=== PATIENT | female | born 1985 | race Hispanic/Latino ===

== ENCOUNTER 2019-12-23 17:07 | Emergency (ER) | payer BC ==
[2019-12-23] MEDS ORDERED: DICYCLOMINE HCL 10 MG/ML 2ML AMP IM ONE (17:33)
[2019-12-23] MEDS ORDERED: ONDANSETRON ODT 4 MG TAB ONE (17:34)
[2019-12-23 18:25] LABS: APPEARANCE,URINE Clear (CLEAR); BILIRUBIN,URINE Negative (NEGATIVE); COLOR,URINE Yellow (YELLOW); GLUCOSE, URINE (UA) Negative (NEGATIVE); KETONES,URINE Negative (NEGATIVE); LEUKOCYTE ESTERASE ,URINE Negative (NEGATIVE); NITRATE,URINE Negative (NEGATIVE); OCCULT BLOOD,URINE Large (NEGATIVE); PROTEIN,URINE Negative (NEGATIVE); UROBILINOGEN,URINE 0.2 mg/dL (0.2-1.0)
[2019-12-23 18:28] LABS: HCG,QUAL RESULT NEGATIVE (NEGATIVE)
[2019-12-23 18:59] LABS: BACTERIA,URINE Few /HPF (None Seen); SQUAMOUS EPITHELIAL CELL,UR Few /HPF (0-2)
== END 2019-12-23 19:01 | disposition home or self-care (01) ==
LOC: EDH 17:07
DX: J11.1 Influenza due to unidentified influenza virus with other respiratory manifestations (principal); R19.7 Diarrhea, unspecified; Z90.49 Acquired absence of other specified parts of digestive tract
CPT/HCPCS: 81001; 81025; 87804 ×2; 96372; 99283; J0500

== ENCOUNTER 2020-02-28 20:32 | Inpatient (IN) | payer BC ==
[~2020-02-28] VITALS: Ht 162.6 cm; Wt 158.6 kg
[2020-02-28] MEDS ORDERED: ONDANSETRON HCL 4 MG/2 ML VIAL ONE (20:51)
[2020-02-28 20:58] LABS: BASOPHILS % (AUTO) 0.4 % (0.0-5.0); EOSINOPHILS % (AUTO) 0.6 % (0.0-8.0); HEMATOCRIT 42.2 % (36-48); LYMPHOCYTES % (AUTO) 14.7 % (21.0-51.0); MEAN CORPUSCULAR HEMOGLOBIN 25.7 pg (27.0-33.0); MEAN CORPUSCULAR HGB CONC 31.5 g/dL (32.0-36.0); MEAN CORPUSCULAR VOLUME 81.6 fL (79-99); MONOCYTES % (AUTO) 7.2 % (3.0-13.0); NEUTROPHILS % (AUTO) 76.3 % (40.0-77.0); PLATELET COUNT (AUTO) 377 K/uL (130-400); RED BLOOD CELL COUNT(AUTO) 5.17 MIL/uL (4.00-5.50); WHITE BLOOD COUNT (AUTO) 15.5 K/uL (4.8-10.8)
[2020-02-28 21:08] LABS: CREATININE 0.9 mg/dL (0.5-1.5); POTASSIUM 3.8 mmol/L (3.5-5.1)
[2020-02-28 21:13] LABS: ALBUMIN 3.4 g/dL (3.5-5.0); BILIRUBIN,TOTAL 1.1 mg/dL (0.2-1.0)
[2020-02-28 21:24] LABS: APPEARANCE,URINE Cloudy (CLEAR); BILIRUBIN,URINE Small (NEGATIVE); COLOR,URINE Dark Yellow (YELLOW); GLUCOSE, URINE (UA) TRACE mg/dL (NEGATIVE); KETONES,URINE Negative (NEGATIVE); LEUKOCYTE ESTERASE ,URINE Trace (NEGATIVE); NITRATE,URINE Negative (NEGATIVE); OCCULT BLOOD,URINE Negative (NEGATIVE); PROTEIN,URINE Negative (NEGATIVE)
[2020-02-28] MEDS ORDERED: MORPHINE SULFATE 4 MG/1ML SYG ONE ×3 (21:27→23:11)
[2020-02-28 21:29] LABS: HCG,QUAL RESULT NEGATIVE (NEGATIVE)
[2020-02-28 21:31] LABS: BACTERIA,URINE Few /HPF (None Seen); RBC,URINE 0-1 /HPF (0-1); SQUAMOUS EPITHELIAL CELL,UR Few /HPF (0-2)
[2020-02-28] MEDS ORDERED: IOHEXOL 350 MG/ML 100ML INFUS..BTL IV ONE (21:47)
[2020-02-28] MEDS ORDERED: INSULIN HUMULIN R 100 UNIT/ML 3ML ONE (21:48)
[2020-02-28] MEDS ORDERED: HYDRALAZINE HCL 20 MG/ML VIAL ONE (23:06)
[2020-02-28 23:28] LABS: TRIGLYCERIDES 149 mg/dL (30-200)
[2020-02-28] MEDS ORDERED: LACTULOSE 20 GM/30 ML UDCUP PO PRN (23:30)
[2020-02-29 00:04] LABS: HEMOGLOBIN A1C 8.6 % (4.0-6.0)
[2020-02-29 00:05] LABS: CHOLESTEROL 207 mg/dL (<200); HDL CHOLESTEROL 53 mg/dL (35-85); LDL DIRECT 136 mg/dL (0-99)
[2020-02-29] MEDS ORDERED: ZOSYN 3.375GM+NS 50ML 50 ML IV ONE (00:25)
[2020-02-29] MEDS: SODIUM CHLORIDE 0.9% 1000ML 1,000 ML IV SCH ×2 (02:13→05:18)
[2020-02-29 02:56] VITALS: BP 160/82
[2020-02-29] MEDS: MORPHINE SULFATE 4 MG/1ML SYG IV PRN ×4 (03:32→20:41)
[2020-02-29] MEDS: INSULIN HUMULIN R 100 UNIT/ML 3ML SQ SCH ×4 (06:31→21:08)
[2020-02-29 06:33] LABS: BASOPHILS % (AUTO) 0.2 % (0.0-5.0); EOSINOPHILS % (AUTO) 0.1 % (0.0-8.0); HEMATOCRIT 44.3 % (36-48); MEAN CORPUSCULAR HGB CONC 31.2 g/dL (32.0-36.0); MEAN CORPUSCULAR VOLUME 83.6 fL (79-99); NEUTROPHILS % (AUTO) 85.1 % (40.0-77.0); PLATELET COUNT (AUTO) 429 K/uL (130-400); RED CELL DISTRIBUTION WIDTH 13.3 % (11.0-15.5); WHITE BLOOD COUNT (AUTO) 18.1 K/uL (4.8-10.8)
[2020-02-29 07:33] LABS: POTASSIUM 4.6 mmol/L (3.5-5.1)
[2020-02-29 08:00] VITALS: BP 176/105
[2020-02-29] MEDS: ZOSYN 3.375GM+NS 50ML 50 ML IV SCH ×3 (08:24→15:18)
[2020-02-29] MEDS: FAMOTIDINE/PF 20 MG/2 ML VIAL IV SCH ×2 (08:24→20:35)
[2020-02-29] MEDS: ENOXAPARIN SODIUM 40 MG/0.4 ML SYRINGE SQ SCH (08:31)
[2020-02-29 09:39] LABS: ALBUMIN 3.2 g/dL (3.5-5.0); BILIRUBIN,DIRECT 0.7 mg/dL (0.0-0.3); BILIRUBIN,TOTAL 1.1 mg/dL (0.2-1.0); TOTAL PROTEIN, SERUM 7.7 g/dL (6.0-8.3)
--- NOTE | 2020-02-29 09:46 | NUR ---
NOTIFIED DR. CANTOR OF THE GGT RESULT OF 925. NO ORDERS WAS GIVEN.
[2020-02-29] MEDS: HYDRALAZINE HCL 20 MG/ML VIAL IV PRN ×2 (11:12→23:48)
[2020-02-29] MEDS ORDERED: INSULIN GLARGINE 100 UNITS/ML 10 ML VIAL SQ SCH (11:30)
[2020-02-29] MEDS: LACTATED RINGERS 1000ML 1,000 ML IV SCH ×2 (11:30→20:35)
[2020-02-29 11:46] VITALS: BP 165/81
[2020-02-29 11:54] VITALS: BP 171/68
[2020-02-29] MEDS ORDERED: GADODIAMIDE 10 MMOL/20 ML VIAL IV ONE (13:33)
[2020-02-29 16:00] VITALS: BP 152/94
[2020-02-29 17:11] LABS: AMPHET/METH SCREEN,URINE NEGATIVE (NEGATIVE); BARBITURATE SCREEN, URINE NEGATIVE (NEGATIVE); BENZODIAZEPINES SCREEN,URINE NEGATIVE (NEGATIVE); CANNABINOID SCREEN,URINE POSITIVE (NEGATIVE); COCAINE SCREEN,URINE NEGATIVE (NEGATIVE); OPIATE SCREEN,URINE NEGATIVE (NEGATIVE); PHENCYCLIDINE SCREEN,URINE NEGATIVE (NEGATIVE)
--- NOTE | 2020-02-29 18:06 | NUR ---
cm note pt resides at home with spouse, independent with adls and ambulation. no dme. dc plan is back to home at dc. no dc needs. Addendum: 02/29/20 at 1807 by JAK CALHOUN CM Amended: Links added.
[2020-02-29] MEDS ORDERED: LORAZEPAM 2 MG/ML 1 ML VIAL IVP PRN (18:30)
[2020-02-29] MEDS ORDERED: PHARMACY COMMUNICATION MISC PRN (18:30)
[2020-02-29] MEDS ORDERED: CHLORDIAZEPOXIDE HCL 25 MG CAP PO PRN (18:30)
[2020-02-29 19:51] VITALS: BP 156/83
[2020-03-01] VITALS (7 sets, daily range): BP systolic 120–168; BP diastolic 63–98
[2020-03-01] MEDS: MORPHINE SULFATE 4 MG/1ML SYG IV PRN ×4 (02:11→20:55)
[2020-03-01] MEDS: ACETAMINOPHEN 325 MG TAB PO PRN ×2 (04:28→16:05)
[2020-03-01] MEDS: LACTATED RINGERS 1000ML 1,000 ML IV SCH ×6 (05:55→20:36)
[2020-03-01] MEDS: INSULIN HUMULIN R 100 UNIT/ML 3ML SQ SCH ×4 (05:57→20:35)
[2020-03-01 06:09] LABS: BASOPHILS % (AUTO) 0.2 % (0.0-5.0); MEAN CORPUSCULAR HEMOGLOBIN 26.1 pg (27.0-33.0); MEAN CORPUSCULAR HGB CONC 31.6 g/dL (32.0-36.0); MEAN CORPUSCULAR VOLUME 82.8 fL (79-99); MONOCYTES % (AUTO) 7.1 % (3.0-13.0); NEUTROPHILS % (AUTO) 82.9 % (40.0-77.0); PLATELET COUNT (AUTO) 312 K/uL (130-400); RED BLOOD CELL COUNT(AUTO) 4.59 MIL/uL (4.00-5.50); RED CELL DISTRIBUTION WIDTH 13.7 % (11.0-15.5); WHITE BLOOD COUNT (AUTO) 21.1 K/uL (4.8-10.8)
[2020-03-01 06:29] LABS: ALBUMIN 2.6 g/dL (3.5-5.0); BILIRUBIN,DIRECT 0.2 mg/dL (0.0-0.3); BILIRUBIN,TOTAL 0.9 mg/dL (0.2-1.0); CREATININE 0.8 mg/dL (0.5-1.5); POTASSIUM 3.7 mmol/L (3.5-5.1); TOTAL PROTEIN, SERUM 6.7 g/dL (6.0-8.3)
--- NOTE | 2020-03-01 06:30 | NUR ---
paged Dr. Irma Rodriges about patient's lab results and her vital signs. patient's wbs is 21.1, patient's blood pressure is 120/63, with a heart rate of 114, glucose of 217, and temperature of 99.4. I suspect the patient is septic. pending call back from doctor.
[2020-03-01 09:23] LABS: CHOLESTEROL 132 mg/dL (<200); HDL CHOLESTEROL 97 mg/dL (35-85); LDL DIRECT 79 mg/dL (0-99); TRIGLYCERIDES 95 mg/dL (30-200)
[2020-03-01] MEDS: FAMOTIDINE/PF 20 MG/2 ML VIAL IV SCH ×2 (09:30→20:35)
[2020-03-01] MEDS: ENOXAPARIN SODIUM 40 MG/0.4 ML SYRINGE SQ SCH (09:31)
[2020-03-01] MEDS: FOLIC ACID 1 MG TABLET PO SCH (12:36)
[2020-03-01] MEDS: THIAMINE HCL 100 MG TABLET PO SCH (12:36)
[2020-03-01] MEDS: ZOSYN 3.375GM+NS 50ML 50 ML IV SCH ×2 (12:36→20:35)
--- NOTE | 2020-03-01 16:21 | NUR ---
NOTIFIED MD ON CURRENT VS 166/89, HR 102, RESP 24 ,O2 SAT AT 92 IN RA .. PER PATIENT DENIES SHORT OF BREATH , RECHECK ON O2 SAT WENT UP TO 94 PERCENT IN RA AFTER MORPHINE PRN DOSE FOR PAIN .. PER MD WILL CONT TO MONITOR CLOSELY . LET HIM KNOW PER FAMILY HAD QUESTION ON IF PATIENT NEEDED TO BE TESTED FOR COVID-19 .. AT THIS TIME PATIENT HAS SYMPTOMS RELATED TO PANCREATITIS AND SHAW CONT WITH CURRENT MANAGEMENT FOR PANCREATITIS WITH IV FLUIDS , PAIN MANAGEMENT AND ANTIBIOTICS .. WILL CONT TO MONITOR
[2020-03-01] MEDS: INSULIN GLARGINE 100 UNITS/ML 10 ML VIAL SQ SCH (20:34)
[2020-03-01] MEDS: MORPHINE SULFATE 2 MG/ML 1ML SYG IV PRN (23:17)
[2020-03-01] MEDS: HYDRALAZINE HCL 20 MG/ML VIAL IV PRN (23:17)
[2020-03-02] VITALS (7 sets, daily range): BP systolic 127–173; BP diastolic 84–96
[2020-03-02] MEDS: ZOSYN 3.375GM+NS 50ML 50 ML IV SCH (03:42)
[2020-03-02] MEDS: HYDRALAZINE HCL 20 MG/ML VIAL IV PRN (04:27)
[2020-03-02] MEDS: MORPHINE SULFATE 2 MG/ML 1ML SYG IV PRN (04:28)
[2020-03-02] MEDS: LACTATED RINGERS 1000ML 1,000 ML IV SCH ×5 (04:38→23:11)
[2020-03-02] MEDS: INSULIN HUMULIN R 100 UNIT/ML 3ML SQ SCH ×4 (05:47→20:41)
[2020-03-02 06:10] LABS: BASOPHILS % (AUTO) 0.3 % (0.0-5.0); EOSINOPHILS % (AUTO) 0.1 % (0.0-8.0); HEMATOCRIT 35.9 % (36-48); LYMPHOCYTES % (AUTO) 7.5 % (21.0-51.0); MEAN CORPUSCULAR HEMOGLOBIN 25.9 pg (27.0-33.0); MEAN CORPUSCULAR HGB CONC 31.2 g/dL (32.0-36.0); MEAN CORPUSCULAR VOLUME 82.9 fL (79-99); MONOCYTES % (AUTO) 7.6 % (3.0-13.0); NEUTROPHILS % (AUTO) 82.9 % (40.0-77.0); PLATELET COUNT (AUTO) 263 K/uL (130-400); RED BLOOD CELL COUNT(AUTO) 4.33 MIL/uL (4.00-5.50); RED CELL DISTRIBUTION WIDTH 13.5 % (11.0-15.5)
[2020-03-02 06:36] LABS: ALBUMIN 2.4 g/dL (3.5-5.0); BILIRUBIN,DIRECT 3.1 mg/dL (0.0-0.3); BILIRUBIN,TOTAL 3.8 mg/dL (0.2-1.0); CREATININE 0.7 mg/dL (0.5-1.5); MAGNESIUM 2.3 mg/dL (1.80-2.40); POTASSIUM 3.9 mmol/L (3.5-5.1); TOTAL PROTEIN, SERUM 6.6 g/dL (6.0-8.3)
[2020-03-02] MEDS: THIAMINE HCL 100 MG TABLET PO SCH (09:15)
[2020-03-02] MEDS: FOLIC ACID 1 MG TABLET PO SCH (09:16)
[2020-03-02] MEDS: FAMOTIDINE/PF 20 MG/2 ML VIAL IV SCH ×2 (09:16→19:23)
[2020-03-02] MEDS: ENOXAPARIN SODIUM 40 MG/0.4 ML SYRINGE SQ SCH (09:24)
[2020-03-02] MEDS: MORPHINE SULFATE 4 MG/1ML SYG IV PRN ×4 (09:37→22:05)
[2020-03-02] MEDS: MEROPENEM 1 GM VIAL IVP SCH ×2 (10:52→18:23)
[2020-03-02] MEDS: INSULIN GLARGINE 100 UNITS/ML 10 ML VIAL SQ SCH (20:42)
[2020-03-03] MEDS: MEROPENEM 1 GM VIAL IVP SCH ×3 (02:20→18:06)
[2020-03-03] MEDS: MORPHINE SULFATE 4 MG/1ML SYG IV PRN ×3 (02:20→10:58)
[2020-03-03] MEDS: LACTATED RINGERS 1000ML 1,000 ML IV SCH ×3 (02:21→14:50)
[2020-03-03 03:32] VITALS: BP 182/93
[2020-03-03] MEDS: HYDRALAZINE HCL 20 MG/ML VIAL IV PRN ×2 (05:35→20:29)
[2020-03-03] MEDS: INSULIN HUMULIN R 100 UNIT/ML 3ML SQ SCH ×4 (06:16→20:40)
[2020-03-03 07:25] VITALS: BP 169/86
[2020-03-03 08:13] LABS: HEPATITIS A ANTIBODY IGM Negative (Negative); HEPATITIS B CORE IGM Negative (Negative); HEPATITIS Bs ANTIGEN SCREEN P Negative (Negative)
[2020-03-03] MEDS: FAMOTIDINE/PF 20 MG/2 ML VIAL IV SCH ×2 (08:23→20:29)
[2020-03-03] MEDS: ENOXAPARIN SODIUM 40 MG/0.4 ML SYRINGE SQ SCH (08:23)
[2020-03-03] MEDS: THIAMINE HCL 100 MG TABLET PO SCH (08:23)
[2020-03-03] MEDS: FOLIC ACID 1 MG TABLET PO SCH (08:23)
[2020-03-03 10:50] LABS: HEMATOCRIT 34.9 % (36-48); MEAN CORPUSCULAR HEMOGLOBIN 25.8 pg (27.0-33.0); MEAN CORPUSCULAR HGB CONC 31.5 g/dL (32.0-36.0); MEAN CORPUSCULAR VOLUME 81.9 fL (79-99); PLATELET COUNT (AUTO) 294 K/uL (130-400); RED BLOOD CELL COUNT(AUTO) 4.26 MIL/uL (4.00-5.50); RED CELL DISTRIBUTION WIDTH 13.7 % (11.0-15.5)
[2020-03-03] MEDS: ONDANSETRON HCL 4 MG/2 ML VIAL IV PRN (10:57)
[2020-03-03 10:59] LABS: CREATININE 0.7 mg/dL (0.5-1.5); POTASSIUM 3.5 mmol/L (3.5-5.1)
[2020-03-03 11:04] LABS: ALBUMIN 2.2 g/dL (3.5-5.0); BILIRUBIN,TOTAL 0.9 mg/dL (0.2-1.0); TOTAL PROTEIN, SERUM 6.9 g/dL (6.0-8.3)
[2020-03-03 11:13] VITALS: BP 159/88
[2020-03-03] MEDS ORDERED: MORPHINE SULFATE 4 MG/1ML SYG IV PRN (11:45)
[2020-03-03 15:35] VITALS: BP 155/92
--- NOTE | 2020-03-03 16:20 | NUR ---
THC positive & Hx of ETOH abuse SW spoke with patient about lab results positive for marijuana. Patient admits that she smokes marijuana occasionally and just started to do it recently. Patient states she does not feel she has a problem with marijuana. SW also spoke to patient about hx of alcohol abuse. Patient did admit to drinking at least 3 beers a day and drinks a bottle of wine in one sitting. Patient states she started drinking more about 4 years ago but states she will stop due to pain that she experiences when she drinks. SW spoke with patient regarding negative effects of alcohol and marijuana on physical and mental health. Patient in agreement. SW provided patient with community resources for substance abuse counseling.
[2020-03-03] MEDS: MORPHINE SULFATE 2 MG/ML 1ML SYG IV PRN ×2 (16:49→23:08)
[2020-03-03 19:00] VITALS: BP 177/98
[2020-03-03] MEDS: ACETAMINOPHEN 325 MG TAB PO PRN (20:30)
[2020-03-03] MEDS: INSULIN GLARGINE 100 UNITS/ML 10 ML VIAL SQ SCH (20:40)
[2020-03-03 23:00] VITALS: BP 159/81
[2020-03-04] MEDS: MEROPENEM 1 GM VIAL IVP SCH ×3 (02:38→18:13)
[2020-03-04] MEDS: ACETAMINOPHEN 325 MG TAB PO PRN (02:38)
[2020-03-04 03:00] VITALS: BP_SYST 159; BP_SYST 173; BP_DIAS 81; BP_DIAS 97
[2020-03-04] MEDS: HYDRALAZINE HCL 20 MG/ML VIAL IV PRN ×2 (04:49→12:24)
[2020-03-04] MEDS: MORPHINE SULFATE 2 MG/ML 1ML SYG IV PRN (04:49)
[2020-03-04 04:54] LABS: BASOPHILS % (AUTO) 0.4 % (0.0-5.0); EOSINOPHILS % (AUTO) 0.5 % (0.0-8.0); HEMATOCRIT 32.8 % (36-48); LYMPHOCYTES % (AUTO) 7.6 % (21.0-51.0); MEAN CORPUSCULAR HEMOGLOBIN 25.8 pg (27.0-33.0); MEAN CORPUSCULAR HGB CONC 31.4 g/dL (32.0-36.0); MEAN CORPUSCULAR VOLUME 82.2 fL (79-99); MONOCYTES % (AUTO) 8.4 % (3.0-13.0); NEUTROPHILS % (AUTO) 80.4 % (40.0-77.0); PLATELET COUNT (AUTO) 316 K/uL (130-400); RED BLOOD CELL COUNT(AUTO) 3.99 MIL/uL (4.00-5.50); RED CELL DISTRIBUTION WIDTH 13.5 % (11.0-15.5); WHITE BLOOD COUNT (AUTO) 24.4 K/uL (4.8-10.8)
[2020-03-04 05:07] LABS: CREATININE 0.6 mg/dL (0.5-1.5); POTASSIUM 3.3 mmol/L (3.5-5.1)
--- NOTE | 2020-03-04 06:08 | NUR ---
CONTROL ENGINEER PAGED FOR ELEVATED BP AND SODIUM OF 129
[2020-03-04] MEDS: INSULIN HUMULIN R 100 UNIT/ML 3ML SQ SCH ×4 (06:43→20:03)
[2020-03-04] MEDS ORDERED: HYDROMORPHONE HCL 0.5 MG/0.5 ML ML ONE (06:59)
[2020-03-04] MEDS ORDERED: HYDROCHLOROTHIAZIDE 25 MG TABLET ONE (07:00)
[2020-03-04] MEDS: HYDROCHLOROTHIAZIDE 25 MG TABLET PO SCH ×2 (07:00→08:22)
[2020-03-04] MEDS ORDERED: LISINOPRIL 10 MG TABLET ONE (07:00)
[2020-03-04] MEDS: LISINOPRIL 10 MG TABLET PO SCH ×2 (07:00→08:22)
[2020-03-04 08:00] VITALS: BP 190/89
[2020-03-04] MEDS: HYDROMORPHONE HCL 0.5 MG/0.5 ML ML IVP PRN ×3 (08:36→23:05)
[2020-03-04] MEDS: FOLIC ACID 1 MG TABLET PO SCH (08:52)
[2020-03-04] MEDS: THIAMINE HCL 100 MG TABLET PO SCH (08:53)
[2020-03-04] MEDS: ENOXAPARIN SODIUM 40 MG/0.4 ML SYRINGE SQ SCH (08:55)
[2020-03-04 09:00] VITALS: BP 170/88
[2020-03-04] MEDS: FAMOTIDINE/PF 20 MG/2 ML VIAL IV SCH ×2 (09:47→19:58)
[2020-03-04 11:59] VITALS: BP 160/78
[2020-03-04] MEDS ORDERED: LIDOCAINE HCL-MPF 1% 2ML VIAL IV PRN (12:15)
[2020-03-04] MEDS ORDERED: POTASSIUM CHLORIDE 20MEQ/100ML 100 ML IV PRN (12:15)
[2020-03-04] MEDS: HYDROMORPHONE HCL 2 MG/ML VIAL IVP PRN ×2 (12:24→17:23)
[2020-03-04] MEDS: POTASSIUM CHLORIDE 20 MEQ ERTAB PO PRN ×3 (12:45→18:14)
[2020-03-04 17:04] VITALS: BP 153/86
[2020-03-04 19:00] VITALS: BP 147/69
[2020-03-04] MEDS: INSULIN GLARGINE 100 UNITS/ML 10 ML VIAL SQ SCH (20:00)
[2020-03-05] VITALS: BP 149/66
[2020-03-05] MEDS: MEROPENEM 1 GM VIAL IVP SCH ×3 (02:04→17:33)
[2020-03-05] MEDS: HYDROMORPHONE HCL 0.5 MG/0.5 ML ML IVP PRN ×2 (02:18→06:05)
[2020-03-05 04:00] VITALS: BP 152/75
[2020-03-05 04:36] LABS: BASOPHILS % (AUTO) 0.4 % (0.0-5.0); EOSINOPHILS % (AUTO) 0.7 % (0.0-8.0); HEMATOCRIT 32.2 % (36-48); LYMPHOCYTES % (AUTO) 7.6 % (21.0-51.0); MEAN CORPUSCULAR HEMOGLOBIN 26.4 pg (27.0-33.0); MEAN CORPUSCULAR HGB CONC 31.7 g/dL (32.0-36.0); MEAN CORPUSCULAR VOLUME 83.2 fL (79-99); MONOCYTES % (AUTO) 8.1 % (3.0-13.0); NEUTROPHILS % (AUTO) 79.7 % (40.0-77.0); PLATELET COUNT (AUTO) 325 K/uL (130-400); RED BLOOD CELL COUNT(AUTO) 3.87 MIL/uL (4.00-5.50); RED CELL DISTRIBUTION WIDTH 13.5 % (11.0-15.5); WHITE BLOOD COUNT (AUTO) 26.5 K/uL (4.8-10.8)
[2020-03-05 04:47] LABS: ALBUMIN 1.9 g/dL (3.5-5.0); BILIRUBIN,TOTAL 0.4 mg/dL (0.2-1.0); CREATININE 0.6 mg/dL (0.5-1.5); POTASSIUM 3.5 mmol/L (3.5-5.1); TOTAL PROTEIN, SERUM 6.3 g/dL (6.0-8.3)
[2020-03-05] MEDS: POTASSIUM CHLORIDE 10% ELIXIR 20 MEQ/15 ML UDCUP PO PRN ×2 (05:31→11:16)
[2020-03-05] MEDS: INSULIN HUMULIN R 100 UNIT/ML 3ML SQ SCH ×4 (06:05→20:00)
[2020-03-05 07:49] VITALS: BP 119/69
[2020-03-05] MEDS: FOLIC ACID 1 MG TABLET PO SCH (10:49)
[2020-03-05] MEDS: THIAMINE HCL 100 MG TABLET PO SCH (10:49)
[2020-03-05] MEDS: HYDROCHLOROTHIAZIDE 25 MG TABLET PO SCH (10:49)
[2020-03-05] MEDS: LISINOPRIL 10 MG TABLET PO SCH (10:49)
[2020-03-05] MEDS: ENOXAPARIN SODIUM 40 MG/0.4 ML SYRINGE SQ SCH (10:50)
[2020-03-05] MEDS: FAMOTIDINE/PF 20 MG/2 ML VIAL IV SCH ×2 (10:50→19:21)
[2020-03-05] MEDS: HYDROMORPHONE HCL 2 MG/ML VIAL IVP PRN ×2 (10:52→17:30)
[2020-03-05 11:22] VITALS: BP 139/64
--- NOTE | 2020-03-05 14:07 | NUR ---
RD NOTIFICATION Pt Newly Diagnosed DM. Pt not tolerating full/creamy liquids. Recommend Ensure Clear + Chicken broth with meals. Pt able to tolerate tea, water, clear broth. RD to continue to monitor diet advancement. RD also provided Diabetes Nutrition Education. Pt verbalized understanding. RD to continue to monitor. Addendum: 03/05/20 at [address] RD Amended: Links added.
--- NOTE | 2020-03-05 14:10 | NUR ---
NUTRITION EDUCATION DRISS provided Diabetes Nutrition education. Pt reports family members with diabetes. RD provided reference materials and handouts. RD also discussed pancreatitis nutrition recommendations with Pt. Pt verbalized understanding. DRISS encouraged Pt to notify as additional questions or concerns arise. Addendum: 03/05/20 at [address] RD Amended: Links added.
[2020-03-05 16:00] VITALS: BP 128/63
[2020-03-05 19:00] VITALS: BP 155/57
[2020-03-05] MEDS: INSULIN GLARGINE 100 UNITS/ML 10 ML VIAL SQ SCH (19:20)
[2020-03-06] VITALS (7 sets, daily range): BP systolic 119–147; BP diastolic 65–75
[2020-03-06] MEDS: HYDROMORPHONE HCL 0.5 MG/0.5 ML ML IVP PRN ×3 (00:52→15:12)
[2020-03-06] MEDS: MEROPENEM 1 GM VIAL IVP SCH ×3 (02:14→17:37)
[2020-03-06] MEDS: INSULIN HUMULIN R 100 UNIT/ML 3ML SQ SCH ×4 (05:39→20:29)
[2020-03-06] MEDS: FAMOTIDINE/PF 20 MG/2 ML VIAL IV SCH ×2 (09:01→20:22)
[2020-03-06] MEDS: HYDROCHLOROTHIAZIDE 25 MG TABLET PO SCH (09:01)
[2020-03-06] MEDS: LISINOPRIL 10 MG TABLET PO SCH (09:01)
[2020-03-06] MEDS: THIAMINE HCL 100 MG TABLET PO SCH (09:01)
[2020-03-06] MEDS: FOLIC ACID 1 MG TABLET PO SCH (09:01)
[2020-03-06] MEDS: ENOXAPARIN SODIUM 40 MG/0.4 ML SYRINGE SQ SCH (09:02)
[2020-03-06] MEDS: POTASSIUM CHLORIDE 20 MEQ ERTAB PO PRN (09:03)
--- NOTE | 2020-03-06 11:06 | NUR ---
RD UPDATE DIET ORDER DOWNGRADED TO CLEAR LIQUIDS. 30ML PROMOD TID ADD FOR NUTRITIONAL SUPPORT. RD TO CONTINUE TO MONITOR.
[2020-03-06] MEDS: ONDANSETRON HCL 4 MG/2 ML VIAL IV PRN (15:12)
[2020-03-06] MEDS: INSULIN GLARGINE 100 UNITS/ML 10 ML VIAL SQ SCH (20:28)
[2020-03-07] MEDS: POTASSIUM CHLORIDE 20 MEQ ERTAB PO PRN (00:32)
[2020-03-07] MEDS: MEROPENEM 1 GM VIAL IVP SCH ×3 (01:46→18:17)
[2020-03-07] MEDS: HYDROMORPHONE HCL 0.5 MG/0.5 ML ML IVP PRN ×3 (03:27→18:17)
[2020-03-07 03:50] VITALS: BP 118/71
[2020-03-07 04:51] LABS: BASOPHILS % (AUTO) 0.5 % (0.0-5.0); EOSINOPHILS % (AUTO) 1.5 % (0.0-8.0); HEMATOCRIT 31.4 % (36-48); LYMPHOCYTES % (AUTO) 9.4 % (21.0-51.0); MEAN CORPUSCULAR HEMOGLOBIN 26.1 pg (27.0-33.0); MEAN CORPUSCULAR HGB CONC 31.2 g/dL (32.0-36.0); MEAN CORPUSCULAR VOLUME 83.5 fL (79-99); NEUTROPHILS % (AUTO) 73.3 % (40.0-77.0); PLATELET COUNT (AUTO) 364 K/uL (130-400); RED BLOOD CELL COUNT(AUTO) 3.76 MIL/uL (4.00-5.50); RED CELL DISTRIBUTION WIDTH 13.3 % (11.0-15.5)
[2020-03-07 05:34] LABS: ALBUMIN 1.9 g/dL (3.5-5.0); BILIRUBIN,TOTAL 0.4 mg/dL (0.2-1.0); CREATININE 0.7 mg/dL (0.5-1.5); TOTAL PROTEIN, SERUM 6.5 g/dL (6.0-8.3)
[2020-03-07] MEDS: INSULIN HUMULIN R 100 UNIT/ML 3ML SQ SCH ×4 (06:05→22:21)
--- NOTE | 2020-03-07 06:52 | NUR ---
PATIENT UPDATE Up ad jose, tolerating clear liquids well, no nausea and vomiting. Medicated once for pain with dilaudid 0.5 mg given slow iv push for pain which afforded relief. Tmax at 100 degrees at the beginning of the shift.
[2020-03-07 08:00] VITALS: BP 120/68
[2020-03-07] MEDS: ONDANSETRON HCL 4 MG/2 ML VIAL IV PRN (08:24)
[2020-03-07] MEDS: FOLIC ACID 1 MG TABLET PO SCH (08:24)
[2020-03-07] MEDS: THIAMINE HCL 100 MG TABLET PO SCH (08:24)
[2020-03-07] MEDS: FAMOTIDINE/PF 20 MG/2 ML VIAL IV SCH ×2 (08:24→22:19)
[2020-03-07] MEDS: HYDROCHLOROTHIAZIDE 25 MG TABLET PO SCH (08:24)
[2020-03-07] MEDS: ENOXAPARIN SODIUM 40 MG/0.4 ML SYRINGE SQ SCH (08:25)
[2020-03-07] MEDS: LISINOPRIL 10 MG TABLET PO SCH (08:25)
[2020-03-07 11:11] VITALS: BP 142/75
[2020-03-07 16:00] VITALS: BP 136/74
[2020-03-07 19:06] VITALS: BP 126/67
[2020-03-07] MEDS: INSULIN GLARGINE 100 UNITS/ML 10 ML VIAL SQ SCH (22:23)
[2020-03-07 23:06] VITALS: BP 153/82
[2020-03-08] MEDS: MEROPENEM 1 GM VIAL IVP SCH ×3 (02:50→18:05)
[2020-03-08 03:11] VITALS: BP 150/78
[2020-03-08] MEDS: HYDROMORPHONE HCL 0.5 MG/0.5 ML ML IVP PRN (03:24)
[2020-03-08] MEDS: ACETAMINOPHEN 325 MG TAB PO PRN ×2 (03:35→23:41)
[2020-03-08 05:31] LABS: BASOPHILS % (AUTO) 0.6 % (0.0-5.0); HEMATOCRIT 31.7 % (36-48); LYMPHOCYTES % (AUTO) 10.9 % (21.0-51.0); MEAN CORPUSCULAR HEMOGLOBIN 25.9 pg (27.0-33.0); MEAN CORPUSCULAR HGB CONC 31.2 g/dL (32.0-36.0); MONOCYTES % (AUTO) 8.2 % (3.0-13.0); NEUTROPHILS % (AUTO) 69.4 % (40.0-77.0); PLATELET COUNT (AUTO) 400 K/uL (130-400); RED BLOOD CELL COUNT(AUTO) 3.82 MIL/uL (4.00-5.50); RED CELL DISTRIBUTION WIDTH 13.2 % (11.0-15.5); WHITE BLOOD COUNT (AUTO) 21.3 K/uL (4.8-10.8)
[2020-03-08 05:56] LABS: ALBUMIN 2.1 g/dL (3.5-5.0); BILIRUBIN,TOTAL 0.3 mg/dL (0.2-1.0); CREATININE 0.7 mg/dL (0.5-1.5); POTASSIUM 4.3 mmol/L (3.5-5.1); TOTAL PROTEIN, SERUM 6.7 g/dL (6.0-8.3)
[2020-03-08] MEDS: INSULIN HUMULIN R 100 UNIT/ML 3ML SQ SCH ×4 (05:58→21:14)
[2020-03-08 08:05] VITALS: BP 151/78
[2020-03-08] MEDS: ENOXAPARIN SODIUM 40 MG/0.4 ML SYRINGE SQ SCH (09:40)
[2020-03-08] MEDS: LISINOPRIL 10 MG TABLET PO SCH (09:40)
[2020-03-08] MEDS: FOLIC ACID 1 MG TABLET PO SCH (09:40)
[2020-03-08] MEDS: THIAMINE HCL 100 MG TABLET PO SCH (09:40)
[2020-03-08] MEDS: HYDROCHLOROTHIAZIDE 25 MG TABLET PO SCH (09:40)
[2020-03-08] MEDS: FAMOTIDINE/PF 20 MG/2 ML VIAL IV SCH ×2 (09:40→21:20)
[2020-03-08 11:48] VITALS: BP 143/71
[2020-03-08 16:51] VITALS: BP 117/62
[2020-03-08 19:15] VITALS: BP 126/68
[2020-03-08] MEDS: INSULIN GLARGINE 100 UNITS/ML 10 ML VIAL SQ SCH (21:14)
[2020-03-08 23:19] VITALS: BP 143/74
[2020-03-09] MEDS: MEROPENEM 1 GM VIAL IVP SCH ×2 (03:03→11:33)
[2020-03-09 03:41] VITALS: BP 136/71
[2020-03-09 05:22] LABS: BASOPHILS % (AUTO) 0.9 % (0.0-5.0); EOSINOPHILS % (AUTO) 3.8 % (0.0-8.0); HEMATOCRIT 32.9 % (36-48); LYMPHOCYTES % (AUTO) 14.1 % (21.0-51.0); MEAN CORPUSCULAR HEMOGLOBIN 25.6 pg (27.0-33.0); MEAN CORPUSCULAR VOLUME 82.5 fL (79-99); MONOCYTES % (AUTO) 8.1 % (3.0-13.0); NEUTROPHILS % (AUTO) 64.8 % (40.0-77.0); PLATELET COUNT (AUTO) 430 K/uL (130-400); RED BLOOD CELL COUNT(AUTO) 3.99 MIL/uL (4.00-5.50); RED CELL DISTRIBUTION WIDTH 13.1 % (11.0-15.5)
[2020-03-09 05:35] LABS: ALBUMIN 2.2 g/dL (3.5-5.0); BILIRUBIN,TOTAL 0.2 mg/dL (0.2-1.0); CREATININE 0.7 mg/dL (0.5-1.5); POTASSIUM 4.2 mmol/L (3.5-5.1); TOTAL PROTEIN, SERUM 7.1 g/dL (6.0-8.3)
[2020-03-09] MEDS: INSULIN HUMULIN R 100 UNIT/ML 3ML SQ SCH ×3 (05:56→16:30)
[2020-03-09] MEDS: FAMOTIDINE/PF 20 MG/2 ML VIAL IV SCH (08:17)
[2020-03-09] MEDS: METFORMIN HCL 500 MG TABLET PO SCH ×2 (08:18→17:16)
[2020-03-09] MEDS: HYDROCHLOROTHIAZIDE 25 MG TABLET PO SCH (08:18)
[2020-03-09] MEDS: LISINOPRIL 10 MG TABLET PO SCH (08:18)
[2020-03-09] MEDS: FOLIC ACID 1 MG TABLET PO SCH (08:19)
[2020-03-09] MEDS: THIAMINE HCL 100 MG TABLET PO SCH (08:19)
[2020-03-09] MEDS: ENOXAPARIN SODIUM 40 MG/0.4 ML SYRINGE SQ SCH (08:19)
[2020-03-09 08:25] VITALS: BP 138/73
[2020-03-09 13:38] VITALS: BP 144/68
[2020-03-09] MEDS ORDERED: METF-444 PO (14:00)
[2020-03-09] MEDS ORDERED: LISI10TA7 PO (14:00)
[2020-03-09] MEDS ORDERED: AMOX-429 PO (14:00)
[2020-03-09] MEDS ORDERED: HYDR12.54 PO (14:00)
[2020-03-09 17:24] VITALS: BP 138/70
--- NOTE | 2020-03-09 18:00 | NUR ---
DISCHARGE SUMMARY REVIEW WITH PT REGARDING , MEDICATIONS , SIDE EFFECT AND FOLLOWUP WITH CARE .WITH PRIVATE DR. INDICATED . DENIES ANY ABD PAIN OR C/O OF NAUSEA SL TO HER RAC WAS DC ,WITH NO REDNESS TO SITE, SM ENRICO APPLICATION ON .
== END 2020-03-09 18:00 | disposition home or self-care (01) | DRG 439 ==
LOC: EDH 20:32 → EDHIP 23:29 → 3CH 02-29 01:47
PROVIDERS: ADMIT Hospitalist; ATTEND Hospitalist
DX: K85.20 Alcohol induced acute pancreatitis without necrosis or infection (principal); Z68.44 Body mass index [BMI] 60.0-69.9, adult; K86.3 Pseudocyst of pancreas; R65.10 Systemic inflammatory response syndrome (SIRS) of non-infectious origin without acute organ dysfunction; K86.1 Other chronic pancreatitis; E66.01 Morbid (severe) obesity due to excess calories; K76.0 Fatty (change of) liver, not elsewhere classified; K59.00 Constipation, unspecified; R16.0 Hepatomegaly, not elsewhere classified; F10.20 Alcohol dependence, uncomplicated; E11.65 Type 2 diabetes mellitus with hyperglycemia; I10 Essential (primary) hypertension; F12.10 Cannabis abuse, uncomplicated; G20 Parkinson's disease; N28.9 Disorder of kidney and ureter, unspecified; Z82.49 Family history of ischemic heart disease and other diseases of the circulatory system; Z82.5 Family history of asthma and other chronic lower respiratory diseases; Z83.3 Family history of diabetes mellitus; Z90.49 Acquired absence of other specified parts of digestive tract
CPT/HCPCS: 36415; 71045; 74176; 74177; 74183; 80048; 80053; 80061; 80074; 80076; 80305; 81001; 81025; 82150; 82390; 82728; 82948; 82977; 83036; 83516; 83605; 83690; 83735; 85025; 85027; 86038; 86255; 87040; 87088; 93005; 99291; A9579; G0378; G0480; J0360; J1170; J1650; J1815; J2185; J2270; J2405; J2543; J3490; J7120; Q9967

== ENCOUNTER 2020-11-07 17:36 | Emergency (ER) | payer BC ==
[~2020-11-07 17:36] MED LIST: AMOX-429 PO; HYDR12.54 PO; LISI10TA7 PO; METF-444 PO
[2020-11-07 18:01] LABS: APPEARANCE,URINE Clear (CLEAR); BILIRUBIN,URINE Negative (NEGATIVE); COLOR,URINE Yellow (YELLOW); GLUCOSE, URINE (UA) Negative (NEGATIVE); KETONES,URINE Negative (NEGATIVE); LEUKOCYTE ESTERASE ,URINE Small (NEGATIVE); NITRATE,URINE Negative (NEGATIVE); OCCULT BLOOD,URINE Moderate (NEGATIVE); PROTEIN,URINE POS 1+ mg/dL (NEGATIVE)
[2020-11-07] MEDS ORDERED: LIDOCAINE HCL-MPF 1% 2ML VIAL ONE (18:02)
[2020-11-07] MEDS ORDERED: CEFTRIAXONE SODIUM 1 GM ONE (18:02)
[2020-11-07] MEDS ORDERED: PHENAZOPYRIDINE HCL 200 MG TABLET ONE (18:03)
[2020-11-07 18:07] LABS: HCG,QUAL RESULT NEGATIVE (NEGATIVE)
[2020-11-07 18:20] LABS: BACTERIA,URINE Few /HPF (None Seen); SQUAMOUS EPITHELIAL CELL,UR Few /HPF (0-2)
[2020-11-07 18:21] LABS: MUCUS,URINE Few LPF (None Seen)
== END 2020-11-07 18:46 | disposition home or self-care (01) ==
LOC: EDH 17:36
DX: R35.0 Frequency of micturition (principal); R30.0 Dysuria; E11.9 Type 2 diabetes mellitus without complications; Z90.49 Acquired absence of other specified parts of digestive tract
CPT/HCPCS: 81001; 81025; 96372; 99283; J0696; J3490

== ENCOUNTER 2020-12-29 05:04 | Emergency (ER) | payer BC, MEDICAID ==
[~2020-12-29 05:04] MED LIST changes: +LISI10TA24 PO; -LISI10TA7 PO
[2020-12-29] MEDS ORDERED: LIDOCAINE HCL 2% VISCOUS 15 ML UDCUP ONE (05:31)
[2020-12-29] MEDS ORDERED: ACETAMINOPHEN 500 MG TABLET ONE (05:32)
== END 2020-12-29 06:27 | disposition home or self-care (01) ==
LOC: EDH 05:04
DX: S01.512A Laceration without foreign body of oral cavity, initial encounter (principal); K02.9 Dental caries, unspecified; Z32.01 Encounter for pregnancy test, result positive; R03.0 Elevated blood-pressure reading, without diagnosis of hypertension; E11.9 Type 2 diabetes mellitus without complications; X58.XXXA Exposure to other specified factors, initial encounter; Y93.89 Activity, other specified; Y92.89 Other specified places as the place of occurrence of the external cause; Y99.8 Other external cause status
CPT/HCPCS: 81025

== ENCOUNTER 2021-01-08 01:52 | Emergency (ER) | payer BC, MEDICAID ==
[2021-01-08] MEDS ORDERED: SODIUM CHLORIDE 0.9% 1000ML 1,000 ML IV ONE (02:26)
[2021-01-08 02:31] LABS: BASOPHILS % (AUTO) 0.5 % (0.0-5.0); HEMATOCRIT 39.3 % (36-48); LYMPHOCYTES % (AUTO) 21.8 % (21.0-51.0); MEAN CORPUSCULAR HEMOGLOBIN 27.1 pg (27.0-33.0); MEAN CORPUSCULAR HGB CONC 32.3 g/dL (32.0-36.0); MONOCYTES % (AUTO) 5.7 % (3.0-13.0); NEUTROPHILS % (AUTO) 69.4 % (40.0-77.0); PLATELET COUNT (AUTO) 241 K/uL (130-400); RED BLOOD CELL COUNT(AUTO) 4.68 MIL/uL (4.00-5.50); WHITE BLOOD COUNT (AUTO) 12.9 K/uL (4.8-10.8)
[2021-01-08 02:40] LABS: APPEARANCE,URINE Clear (CLEAR); BILIRUBIN,URINE Negative (NEGATIVE); COLOR,URINE Orange (YELLOW); GLUCOSE, URINE (UA) Negative (NEGATIVE); KETONES,URINE Negative (NEGATIVE); LEUKOCYTE ESTERASE ,URINE Large (NEGATIVE); NITRATE,URINE Negative (NEGATIVE); OCCULT BLOOD,URINE Large (NEGATIVE); PROTEIN,URINE Trace mg/dL (NEGATIVE); UROBILINOGEN,URINE 0.2 mg/dL (0.2-1.0)
[2021-01-08 02:45] LABS: PROTHROMBIN TIME 10.9 SEC (9.6-11.6)
[2021-01-08 02:46] LABS: PARTIAL THROMBOPLASTIN TIME 23.4 SEC (26.3-35.5)
[2021-01-08 02:50] LABS: CREATININE 0.6 mg/dL (0.5-1.5); POTASSIUM 4.3 mmol/L (3.5-5.1)
[2021-01-08 03:13] LABS: ALBUMIN 3.4 g/dL (3.5-5.0); BILIRUBIN,TOTAL 0.2 mg/dL (0.2-1.0); TOTAL PROTEIN, SERUM 7.8 g/dL (6.0-8.3)
[2021-01-08 03:20] LABS: BACTERIA,URINE Few /HPF (None Seen); MUCUS,URINE Rare LPF (None Seen)
[2021-01-08] MEDS ORDERED: CEPHALEXIN 500 MG CAPSULE ONE (03:41)
== END 2021-01-08 03:51 | disposition home or self-care (01) ==
LOC: EDH 01:52
DX: O20.0 Threatened abortion (principal); O23.40 Unspecified infection of urinary tract in pregnancy, unspecified trimester; O10.011 Pre-existing essential hypertension complicating pregnancy, first trimester; O24.111 Pre-existing type 2 diabetes mellitus, in pregnancy, first trimester; Z3A.01 Less than 8 weeks gestation of pregnancy; Z90.49 Acquired absence of other specified parts of digestive tract
CPT/HCPCS: 36415; 76801; 80053; 81001; 84702; 85025; 85610; 85730; 86850; 86900; 86901; 87088; 96360; 99284; J7030

== ENCOUNTER 2021-02-28 17:16 | Emergency (ER) | payer BC, MEDICAID ==
[2021-02-28] MEDS ORDERED: AMOXICILLIN 500 MG CAPSULE PO ONE (19:04)
[2021-02-28] MEDS ORDERED: ACETAMINOPHEN-CODEINE 300/30MG TAB ONE (19:04)
== END 2021-02-28 19:17 | disposition home or self-care (01) ==
LOC: EDH 17:16
DX: S02.5XXA Fracture of tooth (traumatic), initial encounter for closed fracture (principal); K04.7 Periapical abscess without sinus; E11.9 Type 2 diabetes mellitus without complications; I10 Essential (primary) hypertension; X58.XXXA Exposure to other specified factors, initial encounter; Y93.89 Activity, other specified; Y92.89 Other specified places as the place of occurrence of the external cause; Y99.8 Other external cause status

== ENCOUNTER 2021-03-13 20:35 | Emergency (ER) | payer BC, MEDICAID ==
[2021-03-13 21:14] LABS: APPEARANCE,URINE Cloudy (CLEAR); BILIRUBIN,URINE Negative (NEGATIVE); COLOR,URINE Yellow (YELLOW); GLUCOSE, URINE (UA) Negative (NEGATIVE); KETONES,URINE Trace mg/dL (NEGATIVE); LEUKOCYTE ESTERASE ,URINE Moderate (NEGATIVE); NITRATE,URINE Negative (NEGATIVE); OCCULT BLOOD,URINE Trace (NEGATIVE); PROTEIN,URINE Negative (NEGATIVE)
[2021-03-13 21:22] LABS: BACTERIA,URINE Few /HPF (None Seen); CALCIUM OXALATE CRYSTALS,UR Moderate /LPF (None Seen); MUCUS,URINE Rare LPF (None Seen); SQUAMOUS EPITHELIAL CELL,UR Moderate /HPF (0-2)
[2021-03-13 21:30] LABS: BASOPHILS % (AUTO) 0.5 % (0.0-5.0); EOSINOPHILS % (AUTO) 1.8 % (0.0-8.0); HEMATOCRIT 34.2 % (36-48); LYMPHOCYTES % (AUTO) 15.6 % (21.0-51.0); MEAN CORPUSCULAR HEMOGLOBIN 26.3 pg (27.0-33.0); MEAN CORPUSCULAR HGB CONC 31.9 g/dL (32.0-36.0); MEAN CORPUSCULAR VOLUME 82.4 fL (79-99); MONOCYTES % (AUTO) 6.4 % (3.0-13.0); NEUTROPHILS % (AUTO) 74.6 % (40.0-77.0); PLATELET COUNT (AUTO) 309 K/uL (130-400); RED BLOOD CELL COUNT(AUTO) 4.15 MIL/uL (4.00-5.50); RED CELL DISTRIBUTION WIDTH 12.6 % (11.0-15.5); WHITE BLOOD COUNT (AUTO) 14.9 K/uL (4.8-10.8)
[2021-03-13 21:48] LABS: CREATININE 0.6 mg/dL (0.5-1.5); POTASSIUM 5.1 mmol/L (3.5-5.1)
[2021-03-13] MEDS ORDERED: CEFTRIAXONE SODIUM 1 GM ONE (21:59)
[2021-03-13] MEDS ORDERED: LIDOCAINE HCL-MPF 1% 2ML VIAL ONE (21:59)
[2021-03-13] MEDS ORDERED: ACETAMINOPHEN EXTRA STRENGTH 500 MG TABLET ONE (21:59)
[2021-03-13 22:13] LABS: ALBUMIN 2.8 g/dL (3.5-5.0); BILIRUBIN,TOTAL 0.4 mg/dL (0.2-1.0)
== END 2021-03-13 23:07 | disposition home or self-care (01) ==
LOC: EDH 20:35
DX: O23.12 Infections of bladder in pregnancy, second trimester (principal); E11.9 Type 2 diabetes mellitus without complications; I10 Essential (primary) hypertension; Z3A.16 16 weeks gestation of pregnancy
CPT/HCPCS: 36415; 76805; 80053; 81001; 84702; 85025; 87088; 96372; 99284; J0696; J3490